=== PATIENT | male | born 1990 | race African-American/Black ===

== ENCOUNTER 2024-06-02 09:53 | Inpatient (IN) | payer MEDICAID, OTHER ==
[~2024-06-02] VITALS: Ht 170.2 cm; Wt 84.6 kg
--- NOTE | 2024-06-02 11:23 | ED.PDOC ---
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) presents for skin rash x 3 days Located to the right frontal area Described as burning throbbing sensation Has not tried medications Denies ocular involvement Denies ever having this before Patient denies any fever, cough, difficulty swallowing Denies fever chills night sweats nausea vomiting diarrhea Denies persistent loss of appetite nor unintentional weight loss over the past 3 months Denies cough and cold-like symptoms Chief Complaint: Rash Time Seen by MD: 10:25 Primary Care Provider: unknown History of Present Illness: Nurses Notes, Medications, Allergies Allergies: Coded Allergies: NO KNOWN ALLERGIES (Unverified , 06/02/24) Home Meds No Active Prescriptions or Reported Meds Information Source: Patient Mode of Arrival: Ambulatory Past Medical History PAST MEDICAL HISTORY: HIV Social History Smoker: Non-Smoker Alcohol: Denies ETOH Use Drugs: Denies Drug Use All Other Systems: Reviewed and Negative (Per HPI) Physical Exam General Appearance: No Apparent Distress, Normal HEENT: Normal ENT Inspection, Pharynx Normal, TMs Normal Neck: Full Range of Motion, Non-Tender, Normal, Normal Inspection Respiratory: Chest Non-Tender, Lungs Clear, No Accessory Muscle Use, No Respiratory Distress, Normal Breath Sounds Cardiovascular: No Edema, No JVD, No Murmur, No Gallop, Regular Rate/Rhythm Breast Exam: Deferred Gastrointestinal: No Organomegaly, Non Tender, No Pulsatile Mass, Normal Bowel Sounds, Soft Genitalia: Deferred Pelvic: Deferred Rectal: Deferred Extremities: No calf tenderness, Normal capillary refill, Normal inspection, Normal range of motion, Non-tender, No pedal edema Musculoskeletal : Apperance: Normal Neurologic: Alert, assistant merchandise manager II-XII nml as Tested, No Motor Deficits, Normal Affect, Normal Mood, No Sensory Deficits Cerebellar Function: Normal Reflexes: Normal Skin: Dry, Normal Color, Warm Lymphatic: No Adenopathy Was a procedure done? Was a procedure done?: No Images 1 - Swelling to upper and lower eyelid. Vesicular rash. Nontender to palpation. Differential Diagnosis (INTG) Differential Diagnosis: Cellulitis, Insect Envenomation Differential Diagnosis: Herpes Zoster/Simplex, Viral exanthema X-Ray, Labs, Meds, VS Vital Signs Date Time Temp Pulse Resp B/P (MAP) Pulse Ox O2 Delivery O2 Flow Rate FiO2 06/02/24 15:45 99.6 95 16 125/82 (96) 98 99.6 06/02/24 10:55 90 16 97 Room Air 06/02/24 10:55 99.2 90 16 136/97 (110) 97 99.2 06/02/24 10:09 99.2 90 16 136/97 (110) 97 Lab Test 06/02/24 11:36 06/02/24 11:22 Range/Units White Blood Count 4.5 4.4-10.8 10^3/uL Red Blood Count 6.10 H 4.5-5.90 10^6/uL Hemoglobin 18.8 H 13.5-17.5 g/dL Hematocrit 55.6 H 41.0-53.0 % Mean Corpuscular Volume 91.1 80.0-100.0 fL Mean Corpuscular Hemoglobin 30.8 28.0-32.0 pg Mean Corpuscular Hemoglobin Concent 33.8 32.0-36.0 g/dL Red Cell Distribution Width 13.6 11.8-14.3 % Platelet Count 214 140-450 10^3/uL Mean Platelet Volume 8.3 6.9-10.8 fL Neutrophils (%) (Auto) 37.0-80.0 % Lymphocytes (%) (Auto) 10.0-50.0 % Monocytes (%) (Auto) 0.0-12.0 % Basophils (%) (Auto) 0.0-2.0 % Neutrophils # (Auto) 1.6-8.6 10 ^3/uL Lymphocytes # (Auto) 0.4-5.4 10 ^3/uL Monocytes # (Auto) 0-1.3 10 ^3/uL Differential Total Cells Counted 100.0 100 Neutrophils % (Manual) 65 37.0-80.0 Band Neutrophils % (Manual) 0 Lymphocytes % (Manual) 18 10.0-50.0 Monocytes % (Manual) 17 H 0-12 Eosinophils % (Manual) 0 0-7 Basophils % (Manual) 0 0.0-2.0 Metamyelocytes % (manual) 0 Myelocytes % (Manual) 0 Promyelocytes % (Manual) 0 Blast Cells % (Manual) 0 Reactive Lymphocytes 0 Platelet Estimate Adequate Erythrocyte Sedimentation Rate 2 0-20 mm/hr Sodium Level 135 L 136-145 mmol/L Potassium Level 4.0 3.5-5.1 mmol/L Chloride Level 102 98-107 mmol/L Carbon Dioxide Level 26 20-31 mmol/L Anion Gap 7 5-15 Blood Urea Nitrogen 7 L 9-23 mg/dL Creatinine 1.07 0.700-1.30 mg/dL Glomerular Filtration Rate Calc 94 >90 mL/min BUN/Creatinine Ratio 6.5 L 10.0-20.0 Serum Glucose 100 74-106 mg/dL Calcium Level 9.9 8.7-10.4 mg/dL Total Bilirubin 0.9 0.2-1.0 mg/dL Aspartate Amino Transferase (AST) 34 13-40 U/L Alanine Aminotransferase (ALT) 42 H 7-40 U/L Alkaline Phosphatase 83 46-116 U/L C-Reactive Protein High Sensitivity 1.81 H <1.0 mg/dL Total Protein 8.4 H 5.7-8.2 g/dL Albumin 5.0 H 3.2-4.8 g/dL Urine Color Light-yellow Yellow Urine Clarity Clear Clear Urine pH 6.0 5.0-9.0 Urine Specific [place] 1.008 1.001-1.035 Urine Protein Negative Negative Urine Ketones Trace Negative Urine Blood Negative Negative /uL Urine Nitrite Negative Negative Urine Bilirubin Negative Negative Urine Urobilinogen Normal Negative mg/dL Urine Leukocyte Esterase Negative Negative /uL Urine RBC <1 0 - 3 /hpf Urine Microscopic WBC 1 0-3 /HPF Urine Squamous Epithelial Cells Few <5 /hpf Urine Bacteria None seen None Seen /hpf Urine Mucus Few None Seen Urine Glucose Normal Normal mg/dL [place] [id number] Ph: [phone] DIAGNOSTIC IMAGING Diagnostic Imaging Report : [id number] Signed PATIENT: JJ WHEELER DEMARCUSACCT: [id number] UNIT: [id number] : 1990 LOC: ER ROOM / BED: / AGE / SEX: 34 / M ADM STATUS: REG ER SERVICE 1327 ORDERING PHYSICIAN: NEREIDA SETH NP PROCEDURE(s): FACIC - MAXILLOFACIAL WITH REASON: R/o abscess formation to the right frontal area ORDER NUMBER(s): [id number], ACCESSION NUMBER(s): [id number] CLINICAL INFORMATION: Rule out abscess formation in the right frontal area. TECHNIQUE: Axial CT images of the maxillofacial region were obtained after the uneventful administration of 100 mL omnipaque 300 IV contrast. Coronal and sagittal reformatted images were obtained, reviewed, and stored. One or more of the following dose reduction techniques were used: Automated exposure control. Adjustment of mA and/or kV according to patient size. CTDIvol = 66.95 mGy DLP = 1597.44 mGy-cm COMPARISON: None FINDINGS: There is diffuse subcutaneous edema in the frontal scalp, centered in the right frontal scalp, with mild enhancement and skin thickening, may be due to cellulitis in the appropriate clinical setting. No peripherally enhancing abscess demonstrated. The edema extends over the right periorbital region and nasal region. No stranding or edema in the orbital fat to suggest orbital cellulitis. 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 Minimal paranasal sinus disease. There are multiple dental caries in the mandibular and maxillary teeth. There are some periapical lucencies involving multiple teeth, which may be seen with periapical abscesses. Prominent bilateral submandibular lymph nodes, cervical lymph nodes, and supraclavicular lymph nodes, with the largest measuring up to 2.8 x 1.6 cm in the right level 2 station, likely reactive. Thyroid gland, submandibular glands, and parotid glands are unremarkable. IMPRESSION: 1. Findings in the right frontal scalp and extending to the right periorbital region and nasal soft tissues, likely cellulitis in the appropriate clinical setting. 2. No peripherally enhancing abscess identified. 3. Likely reactive lymphadenopathy as detailed above. 4. Dental disease as detailed above. 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 Maxillofacial with CT ordered IMPRESSION: 1. Findings in the right frontal scalp and extending to the right periorbital region and nasal soft tissues, likely cellulitis in the appropriate clinical setting. 2. No peripherally enhancing abscess identified. 3. Likely reactive lymphadenopathy as detailed above. 4. Dental disease as detailed above. Patient was started on broad-spectrum antibiotics The patient's workup reveals that the patient needs further evaluation and/or treatment for the above medical conditions. Patient verbalized understanding of the above and is awaiting further evaluation by the admitting service. Time of 1ST Reevaluation: 15:00 Reevaluation 1ST: Improved Patient Education/Counseling: Diagnosis, Treatment Family Education/Counseling: Diagnosis, Treatment Departure 1 Departure Time of Disposition: 15:02 Impression: Primary Impression: Orbital cellulitis, left Additional Impression: Vesicular rash Disposition: ADMITTED INPATIENT Condition: Fair e-Prescriptions No Active Prescriptions or Reported Meds Critical Care Note Critical Care Time?: No Stability Stability form required: No Heart Score Heart Score: Heart Score Response (Comments) Value History N/A 0 EKG N/A 0 Age N/A 0 Risk Factors N/A 0 Troponin N/A 0 Total 0 NEREIDA SETH NP Jun 02, 2024 11:23
[2024-06-02 11:53] LABS: Urine Bacteria None Seen /hpf (None Seen)
[2024-06-02 12:15] LABS: White Blood Cell 4.5 10^3/uL (4.4-10.8)
[2024-06-02 12:19] LABS: Hematocrit 55.6 % (41.0-53.0); Hemoglobin 18.8 g/dL (13.5-17.5); Mean Corpuscular Hemoglobin 30.8 pg (28.0-32.0); Mean Corpuscular Hgb Conc. 33.8 g/dL (32.0-36.0); Mean Corpuscular Volume 91.1 fL (80.0-100.0); Platelet Count (auto) 214 10^3/uL (140-450); Red Cell Distribution Width 13.6 % (11.8-14.3)
[2024-06-02 12:20] LABS: Alkaline Phosphatase 83 U/L (46-116); Anion Gap 7 (5-15); Aspartate Aminotransferase 34 U/L (13-40); BUN/Creatinine Ratio 6.5 (10.0-20.0); Calcium 9.9 mg/dL (8.7-10.4); Carbon Dioxide 26 mmol/L (20-31); Chloride 102 mmol/L (98-107); Glucose 100 mg/dL (74-106)
[2024-06-02 12:21] LABS: Bilirubin, Total 0.9 mg/dL (0.2-1.0)
[2024-06-02 12:23] LABS: Alanine Aminotransferase 42 U/L (7-40); Blood Urea Nitrogen 7 mg/dL (9-23); Sodium 135 mmol/L (136-145); Total Protein 8.4 g/dL (5.7-8.2)
[2024-06-02 12:25] LABS: Band Neutrophils % (manual) 0; Basophils % (manual) 0 (0.0-2.0); Blast Cells 0; Eosinophils % (manual) 0 (0-7); Metamyelocytes % 0; Myelocytes % 0; Promyelocytes % 0; Reactive Lymphocytes 0
[2024-06-02 12:30] LABS: CRP High Sensitivity 1.81 mg/dL (<1.0)
[2024-06-02 12:39] LABS: Urine Blood Negative /uL (Negative); Urine Clarity Clear (Clear); Urine Color Light-Yellow (Yellow); Urine Mucus FEW (None Seen); Urine Protein, UAD Negative (Negative); Urine Specific Gravity 1.008 (1.001-1.035); Urine Squamous Epithelial Cell FEW /hpf (<5); Urine Urobilinogen Normal (Negative); Urine WBC 1 /HPF (0-3)
[2024-06-02 12:57] LABS: Lymphocytes % (manual) 18 (10.0-50.0); Monocytes % (manual) 17 (0-12); Platelet Estimate Adequate
[2024-06-02 13:35] LABS: Erythrocyte Sedimentation Rate 2 mm/hr (0-20)
[2024-06-02] MEDS: IOHEXOL 300 MG/ML 100ML BOTTLE IJ ONE (14:26)
--- NOTE | 2024-06-02 14:53 | DVH ---
CLINICAL INFORMATION: Rule out abscess formation in the right frontal area. TECHNIQUE: Axial CT images of the maxillofacial region were obtained after the uneventful administrat ion of 100 mL omnipaque 300 IV contrast. Coronal and sagittal reformatted images were obtained, revie wed, and stored. One or more of the following dose reduction techniques were used: Automated exposure control. Adjustment of mA and/or kV according to patient size. CTDIvol = 66.95 mGy DLP = 1597.44 mGy-cm COMPARISON: None FINDINGS: There is diffuse subcutaneous edema in the frontal scalp, centered in the right frontal sc alp, with mild enhancement and skin thickening, may be due to cellulitis in the appropriate clinical setting. No peripherally enhancing abscess demonstrated. The edema extends over the right periorbita l region and nasal region. No stranding or edema in the orbital fat to suggest orbital cellulitis. Th e right globe is abnormally shrunken with prominent calcification along its posterior aspect, likely chronic rupture. Minimal paranasal sinus disease. There are multiple dental caries in the mandibular and maxillary teeth. There are some periapical lucencies involving multiple teeth, which may be seen with periapical abscesses. Prominent bilateral submandibular lymph nodes, cervical lymph nodes, and supraclavicular lymph nodes, with the largest measuring up to 2.8 x 1.6 cm in the right level 2 stati on, likely reactive. Thyroid gland, submandibular glands, and parotid glands are unremarkable. IMPRESSION: 1. Findings in the right frontal scalp and extending to the right periorbital region and nasal soft t issues, likely cellulitis in the appropriate clinical setting. 2. No peripherally enhancing abscess identified. 3. Likely reactive lymphadenopathy as detailed above. 4. Dental disease as detailed above.
[2024-06-02] MEDS ORDERED: VANCOMYCIN PER PHARMACY 0 MG IV SCH (15:00)
[2024-06-02] MEDS: cefTRIAXone 1GM/50ML D5W 50 ML IV ONE (15:28)
[2024-06-02] MEDS: VANCOMYCIN 1GM/250ML KIT 250 ML IV SCH (16:08)
[2024-06-02] MEDS ORDERED: cefTRIAXone 1GM/50ML D5W 50 ML IV ONE (16:45)
[2024-06-02] MEDS ORDERED: MORPHINE SULFATE INJ 2 MG/ml SYRG IV PRN ×2 (16:45→18:00)
[2024-06-02] MEDS ORDERED: HYDROcodone-ACET 5/325MG TAB PO PRN (16:45)
[2024-06-02] MEDS ORDERED: ONDANSETRON HCL 4 MG/2 ML VIAL IV PRN (16:45)
[2024-06-02] MEDS ORDERED: DOCUSATE SOD 100 MG CAP PO PRN (16:45)
--- NOTE | 2024-06-02 17:56 | DVHHP2 ---
History of Present Illness Reason for Visit: Orbital cellulitis, left History of Present Illness The patient is a 34-year-old male with past medical history of HIV and right eye blindness 5 years ago, presented to [facility] ED for evaluation of skin rash for the past 3 days located his right frontal area. Patient described branch as burning sensation, throbbing, painful to touch, getting worse that prompted this visit. He has not tried any medication. Patient was seen and evaluated in the ED, laboratory data shows WBC 4.5, hemoglobin 18.8, hematocrit 55.6, platelets 214, sodium 135, potassium 4.0, BUN 7, creatinine 1.07, GFR 94, glucose 100, C-reactive protein 1.81, protein 8.4, albumin 5.0, AST 34, ALT 42. Maxillofacial CT revealing findings in the right frontal scalp and extending to the right periorbital region and nasal soft tissues, likely cellulitis, no peripherally enhancing abscess identified. Patient was started on IV antibiotic regimen vancomycin, please see medication orders section in the computer. On my assessment, patient denied chest pain, no headache, no dizziness, no blurry vision, no loss of consciousness, no shortness of breath, no nausea, no vomiting, no fever, no chills. Patient was admitted for further evaluation and medical management. Past Medical History HIV, Right eye blindness Past Surgical History Denies all surgeries Family History Reviewed, noncontributory to the management of this case. Past Social History The patient lives at home, denies smoking, alcohol or illicit drugs abuse. Review of Systems Constitutional: Yes: Other (Right frontal area cellulitis); No: Fever, Chills, Sweats, Weakness, Malaise Eyes: Other (Right eye blindness); No: Pain, Vision change, Conjunctivae inflammation, Eyelid inflammation, Redness ENT: No: Ear pain, Ear discharge, Nose pain, Nose discharge, Nose congestion, Mouth pain, Mouth swelling, Throat pain, Throat swelling, Other Respiratory: No: Cough, Dry, Shortness of breath, SOB with excertion, Wheezing, Hemoptysis, Pleuritic Pain, Sputum, Wheezing, Other Cardiovascular: No: Chest Pain, Palpitations, Orthopnea, Paroxysmal Noc. Dyspnea, Edema, Lt Headedness, Other Gastrointestinal: No: Nausea, Vomiting, Abdominal Pain, Diarrhea, Constipation, Melena, Hematochezia, Other Genitourinary: No Dysuria, No Frequency, No Incontinence, No Hematuria, No Retention, No Other Musculoskeletal: No: other, neck pain, shoulder pain, arm pain, back pain, hand pain, leg pain, foot pain Skin: Rash (Right frontal area); No: Lesions, Jaundice, Bruising, Other Neurological: No: Weakness, Numbness, Incoordination, Change in speech, Confusion, Seizures, Other Allergies: Coded Allergies: NO KNOWN ALLERGIES (Unverified , 06/02/24) Medications Current Medications Medications Dose Ordered Sig/Emily Route Start Time Stop Time Status Last Admin Dose Admin Vancomycin HCl 0 ml @ 0 mls/hr UD IV 06/02/24 15:00 Vancomycin HCl 250 ml @ 250 mls/hr Q1H IV 06/02/24 16:00 06/02/24 17:59 06/02/24 17:24 250 MLS/HR Acetaminophen/ Hydrocodone Bitart 1 tab Q4HP PRN PO 06/02/24 16:45 Ondansetron HCl 4 mg Q4HP PRN IV 06/02/24 16:45 Docusate Sodium 100 mg BIDPRN PRN PO 06/02/24 16:45 Acetaminophen 650 mg Q6HP PRN PO 06/02/24 16:45 Morphine Sulfate 2 mg Q4HPRN PRN IV 06/02/24 16:45 Vancomycin HCl 250 ml @ 250 mls/hr Q8H IV 06/03/24 01:00 Exam Vital Signs Vital Signs Date Time Temp Pulse Resp B/P (MAP) Pulse Ox O2 Delivery O2 Flow Rate FiO2 06/02/24 15:45 99.6 95 16 125/82 (96) 98 99.6 06/02/24 10:55 Room Air General Appearance: Alert, Oriented X3, Cooperative, No acute distress HEENT: Atraumatic, PERRLA, EOMI, Mucous membr. moist/pink Respiratory: Clear to auscultation, Normal air movement Cardiovascular: Regular rate, Normal S1, Normal S2, No murmurs Abdominal: Normal bowel sounds, Soft, No tenderness, No hepatospenomegaly, No masses Extremities: No clubbing, No cyanosis, No edema, Normal pulses, No tenderness/s welling Skin: No breakdown, No significant lesion Neuro: Normal gait, Normal speech, Strength at 5/5 X4 ext, Normal tone, Sensation intact, Cranial nerves 3-12 NL, Reflexes 2+ Psych/Mental Status: Mental status NL, Mood NL Labs/Xrays Labs Test 06/02/24 11:36 06/02/24 11:22 Range/Units White Blood Count 4.5 4.4-10.8 10^3/uL Red Blood Count 6.10 H 4.5-5.90 10^6/uL Hemoglobin 18.8 H 13.5-17.5 g/dL Hematocrit 55.6 H 41.0-53.0 % Mean Corpuscular Volume 91.1 80.0-100.0 fL Mean Corpuscular Hemoglobin 30.8 28.0-32.0 pg Mean Corpuscular Hemoglobin Concent 33.8 32.0-36.0 g/dL Red Cell Distribution Width 13.6 11.8-14.3 % Platelet Count 214 140-450 10^3/uL Mean Platelet Volume 8.3 6.9-10.8 fL Neutrophils (%) (Auto) 37.0-80.0 % Lymphocytes (%) (Auto) 10.0-50.0 % Monocytes (%) (Auto) 0.0-12.0 % Basophils (%) (Auto) 0.0-2.0 % Neutrophils # (Auto) 1.6-8.6 10 ^3/uL Lymphocytes # (Auto) 0.4-5.4 10 ^3/uL Monocytes # (Auto) 0-1.3 10 ^3/uL Differential Total Cells Counted 100.0 100 Neutrophils % (Manual) 65 37.0-80.0 Band Neutrophils % (Manual) 0 Lymphocytes % (Manual) 18 10.0-50.0 Monocytes % (Manual) 17 H 0-12 Eosinophils % (Manual) 0 0-7 Basophils % (Manual) 0 0.0-2.0 Metamyelocytes % (manual) 0 Myelocytes % (Manual) 0 Promyelocytes % (Manual) 0 Blast Cells % (Manual) 0 Reactive Lymphocytes 0 Platelet Estimate Adequate Erythrocyte Sedimentation Rate 2 0-20 mm/hr Sodium Level 135 L 136-145 mmol/L Potassium Level 4.0 3.5-5.1 mmol/L Chloride Level 102 98-107 mmol/L Carbon Dioxide Level 26 20-31 mmol/L Anion Gap 7 5-15 Blood Urea Nitrogen 7 L 9-23 mg/dL Creatinine 1.07 0.700-1.30 mg/dL Glomerular Filtration Rate Calc 94 >90 mL/min BUN/Creatinine Ratio 6.5 L 10.0-20.0 Serum Glucose 100 74-106 mg/dL Calcium Level 9.9 8.7-10.4 mg/dL Total Bilirubin 0.9 0.2-1.0 mg/dL Aspartate Amino Transferase (AST) 34 13-40 U/L Alanine Aminotransferase (ALT) 42 H 7-40 U/L Alkaline Phosphatase 83 46-116 U/L C-Reactive Protein High Sensitivity 1.81 H <1.0 mg/dL Total Protein 8.4 H 5.7-8.2 g/dL Albumin 5.0 H 3.2-4.8 g/dL Urine Color Light-yellow Yellow Urine Clarity Clear Clear Urine pH 6.0 5.0-9.0 Urine Specific [place] 1.008 1.001-1.035 Urine Protein Negative Negative Urine Ketones Trace Negative Urine Blood Negative Negative /uL Urine Nitrite Negative Negative Urine Bilirubin Negative Negative Urine Urobilinogen Normal Negative mg/dL Urine Leukocyte Esterase Negative Negative /uL Urine RBC <1 0 - 3 /hpf Urine Microscopic WBC 1 0-3 /HPF Urine Squamous Epithelial Cells Few <5 /hpf Urine Bacteria None seen None Seen /hpf Urine Mucus Few None Seen Urine Glucose Normal Normal mg/dL PATIENT: JJ WHEELER DEMARCUSACCT: [id number] UNIT: [id number] : 1990 LOC: ER ROOM / BED: / AGE / SEX: 34 / M ADM STATUS: REG ER SERVICE 1327 ORDERING PHYSICIAN: NEREIDA SETH NP PROCEDURE(s): FACIC - MAXILLOFACIAL WITH REASON: R/o abscess formation to the right frontal area ORDER NUMBER(s): [id number], ACCESSION NUMBER(s): [id number] CLINICAL INFORMATION: Rule out abscess formation in the right frontal area. TECHNIQUE: Axial CT images of the maxillofacial region were obtained after the uneventful administration of 100 mL omnipaque 300 IV contrast. Coronal and sagittal reformatted images were obtained, reviewed, and stored. One or more of the following dose reduction techniques were used: Automated exposure control. A djustment of mA and/or kV according to patient size. CTDIvol = 66.95 mGy DLP = 1597.44 mGy-cm COMPARISON: None FINDINGS: There is diffuse subcutaneous edema in the frontal scalp, centered in the right frontal scalp, with mild enhancement and skin thickening, may be due to cellulitis in the appropriate clinical setting. No peripherally enhancing abscess demonstrated. The edema extends over the right periorbital region and nasal region. No stranding or edema in the orbital fat to suggest orbital cellulitis. 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 Minimal paranasal sinus disease. There are multiple dental caries in the mandibular and maxillary teeth. There are some periapical lucencies involving multiple teeth, which may be seen with periapical abscesses. Prominent bilateral submandibular lymph nodes, cerv ical lymph nodes, and supraclavicular lymph nodes, with the largest measuring up to 2.8 x 1.6 cm in the right level 2 station, likely reactive. Thyroid gland, submandibular glands, and parotid glands are unremarkable. IMPRESSION: 1. Findings in the right frontal scalp and extending to the right periorbital region and nasal soft tissues, likely cellulitis in the appropriate clinical setting. 2. No peripherally enhancing abscess identified. 3. Likely reactive lymphadenopathy as detailed above. 4. Dental disease as detailed above. Assessment/Plan Assessment/Plan Orbital cellulitis, left Vesicular rash History of HIV infection Plan 1. Admit to med surge unit 2. Breathing treatment 3. Pain control management 4. IV antibiotic management 5. Management of fluids and electrolytes 6. Consultation for hospitalist 7. Diagnostic test maxillofacial CT 8. DVT prophylaxis-on SCDs 9. Repeat labs CBC, CMP in a.m. 10. Home medication reviewed 11. Continue with current medical management 12. Treatment plan discussed with patient and RN. Patient verbalized understanding. Plan discussed with: Patient, Other (RN) My Orders Orders - PEDRO YOUSSEF DNP Procedure Category Date Status Time Allergies GEORGES 06/02/24 In Process 16:31 Code Status CODE 06/02/24 Transmitted 16:31 2 Gm Sodium Diet DIET 06/02/24 Transmitted Dinner Oxygen Per Hour RT 06/02/24 Transmitted 16:31 Hydrocodone-Acet PHA 06/02/24 In Process 5/325mg Tab ([place] 16:45 Ondansetron Hcl PHA 06/02/24 In Process (Zofran) 16:45 Docusate Sodium PHA 3/3/25 In Process Capsule (Colace 16:45 Complete Blood Count LAB 06/03/24 Verified 04:00 Comprehensive LAB 06/03/24 Verified Metabolic Panel 04:00 Condition: Serious GEORGES 06/02/24 In Process 16:31 Acetaminophen Tablet PHA 06/02/24 In Process (Tylenol Tablet) 16:45 Bedrest With Bathroom GEORGES 06/02/24 In Process Privileg 16:31 Morphine Sulfate PHA 06/02/24 In Process Injection 16:45 Sequential GEORGES 06/02/24 In Process Compression Device Problem List: (1) Orbital cellulitis, left (2) Vesicular rash (3) History of HIV infection Date of Service: Jun 02, 2024 Billing Provider: PEDRO YOUSSEF DNP Common Visit Codes: [id number] INP/OBS CARE (HIGH) PEDRO YOUSSEF DNP Jun 02, 2024 17:56
[2024-06-02] MEDS ORDERED: NITROGLYCERIN 0.4 MG SL TAB SL PRN (18:00)
[2024-06-02 21:00] VITALS: BP 159/87; PULSE 83; RESP 18; TEMP 101.3; O2SAT 97
[2024-06-02 21:31] VITALS: TEMP 101.3
[2024-06-02] MEDS: ACETAMINOPHEN 325 MG TAB PO PRN (21:31)
[2024-06-03] MEDS ORDERED: VANCOMYCIN 1GM/250ML KIT 250 ML IV SCH (01:00)
== END 2024-06-03 00:11 | disposition left against medical advice (07) | DRG 82 ==
LOC: ER 09:53 → OVERFLOW 17:54
PROVIDERS: ADMIT Nurse Practitioner Family; ATTEND Nurse Practitioner Family
DX: H05.012 Cellulitis of left orbit (principal); H54.61 Unqualified visual loss, right eye, normal vision left eye; K08.9 Disorder of teeth and supporting structures, unspecified; H05.011 Cellulitis of right orbit; Z53.29 Procedure and treatment not carried out because of patient's decision for other reasons; Z21 Asymptomatic human immunodeficiency virus [HIV] infection status
CPT/HCPCS: 36415; 70487; 80053; 81001; 85007; 85027; 85652; 86141; 96365; 96366; 96368; G0378